=== PATIENT | male | born 1950 | race Caucasian/White ===

== ENCOUNTER 2017-02-10 07:08 | Outpatient (CLI) | payer MEDICARE, OTHER ==
--- NOTE | 2017-02-10 09:26 | Ultrasound Report ---
AORTA SCREEN: 02/10/2017 CLINICAL INDICATION: Screening, former smoker, history of hypertension. TECHNIQUE: Real-time scanning was performed with cash application representative static images obtained. FINDINGS: The proximal aorta measures 2.7 cm. There is mild aneurysmal dilatation of the mid abdomi nal aorta, measuring 3.4 x 3.0 cm. The aorta then tapers to a normal caliber, measuring 1.6 cm dista lly. The iliacs are normal in caliber. No free fluid is seen. IMPRESSION: MILD ANEURYSMAL DILATATION OF THE MID ABDOMINAL AORTA, MEASURING 3.4 X 3.0 CM. JOB #: [id number] EXT JOB #:[id number]
== END 2017-02-10 07:09 | disposition home or self-care (01) ==
LOC: DI 07:08
PROVIDERS: ATTEND Registered Nurse
DX: Z13.6 Encounter for screening for cardiovascular disorders (principal); I10 Essential (primary) hypertension; Z87.891 Personal history of nicotine dependence
CPT/HCPCS: 76706

== ENCOUNTER 2017-02-19 13:51 | Outpatient (CLI) | payer MEDICARE, OTHER ==
--- NOTE | 2017-02-19 15:09 | XRAY Report ---
FOUR-VIEW RIGHT KNEE: 02/19/2017 CLINICAL INDICATION: Increasing pain. COMPARISON: 12/02/2011 FINDINGS: AP, lateral, bilateral oblique views of the right knee demonstrate no evidence of acute fr acture or dislocation. Osteoarthritis appears stable. A small effusion is present. IMPRESSION: SMALL JOINT EFFUSION. STABLE OSTEOARTHRITIS. JOB #: [id number] EXT JOB #:[id number]
== END 2017-02-19 13:52 | disposition home or self-care (01) ==
LOC: DI.S 13:51
PROVIDERS: ATTEND Registered Nurse
DX: M25.461 Effusion, right knee (principal); M17.11 Unilateral primary osteoarthritis, right knee

== ENCOUNTER 2017-06-19 15:31 | Outpatient (CLI) | payer MEDICARE, OTHER ==
--- NOTE | 2017-06-19 16:12 | XRAY Report ---
DATE OF SERVICE: 06/19/2017 THREE VIEW LUMBAR SPINE: 06/19/2017 CLINICAL INDICATION: Paresthesias. FINDINGS: AP, lateral, coned down views of the lumbar spine demonstrate mild degenerative disk and facet disease. There is no evidence of compression fracture or subluxation. Vascular calcifications are noted. Bowel gas pattern is unremarkable. IMPRESSION: MILD DEGENERATIVE CHANGES IN THE LUMBAR SPINE. TD: 06/19/2017 17:11
== END 2017-06-19 15:32 | disposition home or self-care (01) ==
LOC: DI.S 15:31
PROVIDERS: ATTEND Registered Nurse
DX: M51.36 Other intervertebral disc degeneration, lumbar region (principal); M47.896 Other spondylosis, lumbar region
CPT/HCPCS: 72100

== ENCOUNTER 2018-05-14 07:42 | Outpatient (CLI) | payer MEDICARE, OTHER ==
--- NOTE | 2018-05-14 10:51 | Ultrasound Report ---
Reason: ABDOMINAL AORTIC ANEURYSM, W/O RUPTURE Procedure Date: 05/14/2018 Accession Number: [id number] / [id number] Procedure: US - Retroperitoneal Limited CPT Code: FULL RESULT: EXAM: AORTIC DOPPLER ULTRASOUND EXAM DATE: 05/14/2018 09:49 AM. CLINICAL HISTORY: Abdominal aortic aneurysm, w/o rupture. COMPARISON: Aorta screening 02/10/2017 7:09 AM. TECHNIQUE: Real-time sonographic imaging of retroperitoneal vascular structures, including color-flow, Doppler flow and spectral analysis was performed by the home energy auditor. Multiple international sales representative static images were saved for review. FINDINGS: Exam is limited due to poor acoustic windows from shadowing bowel gas. This predominantly affected visualization of proximal and mid aortic segments. Aorta: While poorly visualized, there is the suggestion of aortic dilation to 3.4 x 3.5 cm just superior to the celiac axis. Iliac arteries are normal in caliber with the right measuring 1.3 x 1.4 cm and the left measuring 1.4 x 1.6 cm. Distal abdominal aorta measures 1.7 x 1.9 cm which is within normal limits. Subjectively, there is atherosclerotic plaque. Iliac Vessels: The visualized proximal common iliac arteries are normal in caliber. Other: None. IMPRESSION: Limited examination with poor visualization due to bowel gas. Recommend CTA of the abdomen to evaluate the questionable upper abdominal aortic ectasia to exclude a suprarenal abdominal aortic aneurysm. RADIA
== END 2018-05-14 07:43 | disposition home or self-care (01) ==
LOC: DI 07:42
PROVIDERS: ATTEND Internal Medicine
DX: I71.4 Abdominal aortic aneurysm, without rupture (principal)
CPT/HCPCS: 76775

== ENCOUNTER 2018-06-03 07:01 | Outpatient (CLI) | payer MEDICARE, OTHER ==
[2018-06-03 08:00] LABS: CREATININE 0.8 mg/dL (0.6-1.2)
[2018-06-03] MEDS ORDERED: IOVERSOL 320 100 ML VIAL IVP ONE ×2 (08:13→08:34)
--- NOTE | 2018-06-04 06:36 | CT Report ---
Reason: ABDOMINAL AORTIC ANEURYSM W/O RUPTURE Procedure Date: 06/03/2018 Accession Number: [id number] / [id number] Procedure: CT - Abdomen/Pelvis Angio CPT Code: FULL RESULT: EXAM: CT ANGIOGRAM ABDOMEN AND PELVIS WITH CONTRAST EXAM DATE: 06/03/2018 08:45 AM. CLINICAL HISTORY: Abdominal aortic aneurysm without rupture. COMPARISONS: Retroperitoneal limited 05/14/2018 8:59 AM. TECHNIQUE: Routine helical CT angiogram imaging was performed through the abdomen and pelvis in the arterial phase. IV contrast: Optiray 320 100mL. Enteric contrast: No. Reconstructions: Coronal, sagittal, and 3D MIP reconstructions. In accordance with CT protocol optimization, one or more of the following dose reduction techniques were utilized for this exam: automated exposure control, adjustment of mA and/or KV based on patient size, or use of iterative reconstructive technique. FINDINGS: Vasculature: The abdominal aorta demonstrates mild scattered calcified atherosclerotic disease. The abdominal aorta is normal in caliber throughout with no aneurysm or stenosis. The iliac arteries demonstrate minor calcified atherosclerotic disease and also appear normal in caliber. Aortic and iliac measurements below: Proximal: 2.4 x 2.4 cm. Mid: 2.2 x 2.1 cm. Distal: 1.7 x 1.7 cm. Right common iliac: 1.3 cm. Left common iliac: 1.2 cm. The celiac, SMA, LESLEY, and renal arteries are diffusely patent. Small accessory renal artery branches are seen bilaterally. The visualized femoral artery vasculature is within normal limits. Lung Bases: Normal. Abdominal Solid Organs: Small 9 mm hypervascular nodule is seen in the spleen, probable tiny hemangioma (image 39, series 5). Liver, gallbladder, bile ducts, adrenal glands, kidneys, and pancreas are unremarkable. Peritoneal Cavity: Normal. No free fluid, free air, or acute inflammatory process. The appendix is normal. Pelvic Organs: Significantly enlarged prostate gland is seen measuring up to 7.0 cm in transverse diameter. Borderline bladder wall thickening is present which may be related to chronic retention. No pelvic mass or adenopathy is identified. Bones: No significant abnormality. Other: None. IMPRESSION: 1. Mild atherosclerotic disease of the abdominal aorta without an aneurysm or stenosis. Abdominal aorta measures up to 2.4 cm. 2. Small 9 mm hypervascular splenic nodule, probable tiny hemangioma. 3. Significant prostatomegaly and mild bladder wall thickening likely due to chronic urinary retention/outlet obstruction. RADIA
== END 2018-06-03 07:02 | disposition home or self-care (01) ==
LOC: DI 07:01
PROVIDERS: ATTEND Registered Nurse
DX: I70.0 Atherosclerosis of aorta (principal); R16.1 Splenomegaly, not elsewhere classified; N40.0 Benign prostatic hyperplasia without lower urinary tract symptoms; N32.89 Other specified disorders of bladder; I10 Essential (primary) hypertension
CPT/HCPCS: 36415; 74174; 82565; Q9967

== ENCOUNTER 2019-09-16 06:46 | Outpatient (CLI) | payer MEDICARE, OTHER ==
--- NOTE | 2019-09-16 11:07 | Ultrasound Report ---
Reason: LLQ ABD SWELLING, MASS, AND LUMP Procedure Date: 09/16/2019 Accession Number: [id number] / [id number] Procedure: US - Pelvic Limited or F/U CPT Code: Final Report FULL RESULT: EXAM: INGUINAL ULTRASOUND EXAM DATE: 09/16/2019 07:33 AM. CLINICAL HISTORY: LLQ abdominal swelling, mass, and lump. COMPARISON: ABDOMEN/PELVIS ANGIO 06/03/2018 8:22 AM. TECHNIQUE: Real-time sonographic imaging of the left inguinal canal and vascular structures, including color-flow, was performed by the setter up. Multiple lifeline representatives static images were saved for review. FINDINGS: Hernia: Positive for a reducible hernia medial to the epigastric artery measuring approximately 1.6 x 4.9 cm with neck measuring 1.5 cm. Hernia contains fat and a small amount of bowel. Soft Tissues: Normal. No fluid collections or adenopathy. Other: None. IMPRESSION: Positive for a reducible left inguinal hernia containing fat and a small amount of bowel. RADIA
== END 2019-09-16 06:47 | disposition home or self-care (01) ==
LOC: DI 06:46
PROVIDERS: ATTEND Nurse Practitioner Family
DX: K40.90 Unilateral inguinal hernia, without obstruction or gangrene, not specified as recurrent (principal)
CPT/HCPCS: 76857

== ENCOUNTER 2020-03-16 16:20 | Outpatient (CLI) | payer MEDICARE, OTHER ==
--- NOTE | 2020-03-16 17:05 | XRAY Report ---
PROCEDURE: Knee 3 View RT INDICATIONS: CONTUSION OF RIGHT KNEE TECHNIQUE: 3 views of the right knee(s) were acquired. COMPARISON: Knee x-ray 02/19/2017 FINDINGS: Bones: No fractures or dislocations. No suspicious bony lesions. Moderate medial compartment narro wing. Periarticular osteophyte is present at the superior patella. Soft tissues: Mild joint effusion. No suspicious soft tissue calcifications. IMPRESSION: Mild effusion. Medial and patellofemoral compartment narrowing suggestive osteoarthritis . No visualized acute fracture or dislocation. However, occult injury cannot be excluded. Recommend s hort interval imaging follow-up in 7-10 days as clinically indicated for additional evaluation. Reviewed by: Ijeoma Sorto MD on 03/16/2020 5:04 PM PDT Approved by: Ijeoma Sorto MD on 03/16/2020 5:04 PM PDT Station ID: [id number]
== END 2020-03-16 16:21 | disposition home or self-care (01) ==
LOC: DI.S 16:20
PROVIDERS: ATTEND Registered Nurse
DX: S80.01XA Contusion of right knee, initial encounter (principal); M25.461 Effusion, right knee